=== PATIENT | male | born 1950 | race Caucasian/White ===

== ENCOUNTER 2018-12-20 06:01 | Day surgery (SDC) | payer OTHER ==
[2018-12-20] MEDS ORDERED: Lactated Ringers 1,000 ML IV SCH (06:30)
[2018-12-20] MEDS ORDERED: DIPRIVAN 200 MG/20 ML IV ONE ×2 (07:53→08:13)
[2018-12-20] MEDS ORDERED: Ketamine HCl 50 MG/ML ONE (07:54)
[2018-12-20 09:16] VITALS: BP 130/78; PULSE 58; O2SAT 99
--- NOTE | 2018-12-20 10:09 | OP ---
SURGERY DATE: 12/20/18 SURGERY TIME: 757 PREOPERATIVE DIAGNOSIS: 1. SCREENING EXAM. POSTOPERATIVE DIAGNOSIS: 1. MILD SIGMOID DIVERTICULOSIS, OTHERWISE NORMAL COLON. PROCEDURE: 1. Colonoscopy. SURGEON: Dr. Leon. ANESTHESIA: MAC. Medications given by the Anesthesia Department. BRIEF HISTORY: The patient is a 68 y/o WM patient presenting now for endoscopic evaluation. He was appraised of the risks of the procedure including the risk of perforation, phlebitis, untoward reaction to medication, bleeding, and missed lesions. The patient verbalized his understanding and desired to have the procedure performed. DESCRIPTION OF PROCEDURE: The patient was given the medications by the Anesthesia Department. He had continuous pulse oximetry, ECG monitoring, intermittent BP monitoring, and end tidal CO2 monitoring during the examination. He was placed in the left lateral decubitus position. A digital rectal examination was performed and revealed normal anal sphincter tone, no masses, and surgically absent prostate. The flexible Olympus pediatric colonoscope was used to intubate the rectum. A view of the colon was developed sequentially to the cecum. Upon insertion and withdrawal, including a retroflex view in the rectum, was noted a few scattered sigmoid diverticula, otherwise no other mucosal lesions were encountered. The scope was removed from the patient who tolerated the procedure well and was sent back to OP recovery in good condition.
== END 2018-12-20 09:15 | disposition home or self-care (01) ==
LOC: SDC 06:01
PROVIDERS: ATTEND Family Medicine
DX: Z12.11 Encounter for screening for malignant neoplasm of colon (principal); K57.30 Diverticulosis of large intestine without perforation or abscess without bleeding
CPT/HCPCS: J2704

== ENCOUNTER 2021-06-10 06:20 | Emergency (ER) | payer OTHER ==
[2021-06-10 06:25] VITALS: PULSE 85; O2SAT 100
[2021-06-10] MEDS ORDERED: Zofran 4 MG/2 ML VIAL IV ONE (06:52)
[2021-06-10] MEDS ORDERED: Sodium Chloride 0.9% 1000 ML 1,000 ML IV STA (06:52)
--- NOTE | 2021-06-10 06:52 | ERPHSYRPT ---
- History of Present Illness Time Seen by Provider: 06/10/21 06:30 Exam Limitations: no limitations Patient Subjective Stated Complaint: nausea, dry heaves, feel dehydrated Triage Nursing Assessment: pt c/o nausea, dry heaves, feels dehydrated. Pt had Lt knee replacement on 06/07/21 and from taking the pain pills he continues to be sick to his stomach. Has been unable to eat hardly anything yesterday but crackers. Lungs clear, heart tones reg, abd soft with active bsx4 quad, nontender. Lt knee has dressing in place, c,d,i. Redness noted around lt knee and lt knee is warm to touch. Gave pt ice packs for knee and elevated knee. Physician History: The patient is a 70-year-old male with a past medical history significant for hypertension and who is recently status post left knee arthroplasty as of June 07, 2021 presents with a chief complaint of nausea and dry heaving. Of note, the patient states that he was taking Olney on an empty stomach since he got home from surgery which made him feel nauseous. He has since stopped taking the Olney over the weekend however he continued to feel nauseous and has had a couple episodes of dry heaving. He denies any abdominal pain, fever, chills, diarrhea. In terms of his left knee, he denies any pain out of proportion and the wound appears to be healing well with no purulent drainage or active bleeding. His orthopedic surgeon is Dr. Rios who is due to follow-up with her shortly. The patient states he has been out walking with a walker and flexing and extending the knee. He states he normally gets nauseous with taking pain medications. He was arrives via EMS and had IV access access already established and had received 4 mg of Zofran prior to arrival with little relief. The patient feels that he is getting dehydrated. Associated Symptoms: nausea, vomiting, No abdominal pain, No shortness of breath Allergies/Adverse Reactions: cinnamon Allergy (Severe, Verified 12/20/18 06:50) vomiting Sulfa (Sulfonamide Antibiotics) Adverse Reaction (Intermediate, Verified 06/10/21 06:44) Fatigue Home Medications: Aspirin 81 mg PO DAILY 06/10/21 [History] Benazepril HCl 10 mg PO DAILY 06/10/21 [History] Hx Tetanus, Diphtheria Vaccination/Date Given: Yes Hx Influenza Vaccination/Date Given: Yes Hx Pneumococcal Vaccination/Date Given: No Immunizations Up to Date: Yes Travel Risk - International Travel Have you traveled outside of the country in past 3 weeks: No - Coronavirus Screening Are you exhibiting any of the following symptoms?: Yes Symptoms: Vomiting/Diarrhea, Headaches/Body Aches/Fatigue Close contact with a COVID-19 positive Pt in past 14-21 Days: No - Vaccine Status Have you recieved a Covid-19 vaccination: No - Review of Systems Constitutional: No Fever, No Chills Eyes: No Symptoms Ears, Nose, & Throat: No Symptoms Respiratory: No Symptoms Cardiac: No Symptoms Abdominal/Gastrointestinal: Nausea, Vomiting, Appetite Changes, No Abdominal Pain, No Constipation Genitourinary Symptoms: No Symptoms Musculoskeletal: Other (Left knee pain) Skin: Other (Surgical wound, left knee) Neurological: No Symptoms Immunological/Allergic: No Symptoms All Other Systems: Reviewed and Negative - Past Medical History Pertinent Past Medical History: Yes Neurological History: No Pertinent History ENT History: No Pertinent History Cardiac History: High Cholesterol Respiratory History: No Pertinent History Endocrine Medical History: No Pertinent History Musculoskeletal History: No Pertinent History GI Medical History: No Pertinent History History: No Pertinent History Psycho-Social History: No Pertinent History Male Reproductive Disorders: Prostate Cancer - Past Surgical History Past Surgical History: Yes Neuro Surgical History: No Pertinent History Cardiac: No Pertinent History Respiratory: No Pertinent History Gastrointestinal: No Pertinent History Genitourinary: No Pertinent History Musculoskeletal: Orthopedic Surgery Male Surgical History: Prostate Surgery Other Surgical History: Prostate may 18 2018. lt knee replacement 06/07/21 - Social History Smoking Status: Never smoker Exposure to second hand smoke: No Drug Use: none Patient Lives Alone: No - Nursing Vital Signs Nursing Vital Signs: Initial Vital Signs Temperature 98.3 F 06/10/21 06:21 Pulse Rate 85 06/10/21 06:21 Respiratory Rate 18 06/10/21 06:21 Blood Pressure 155/85 06/10/21 06:21 O2 Sat by Pulse Oximetry 100 06/10/21 06:21 Pain Scale Pain Intensity 8 - Physical Exam General Appearance: no apparent distress, alert Eye Exam: No scleral icterus Ears, Nose, Throat Exam: moist mucous membranes Neck Exam: normal inspection, supple Respiratory Exam: normal breath sounds, lungs clear, airway intact, No respiratory distress, No diminished breath sounds Cardiovascular Exam: regular rate/rhythm, normal heart sounds, normal peripheral pulses, capillary refill <2 sec, other (Left DP 2+), No murmur, No friction rub, No gallop, No edema Gastrointestinal/Abdomen Exam: soft, No tenderness, No distention, No mass, No guarding, No ecchymosis Rectal Exam: deferred Neurologic Exam: alert, oriented x 3, cooperative, normal mood/affect Skin Exam: other (transervse surgical wound with a clean bandage noted over the anterior L knee with some surrounding erythema and slight increased warmth with little tenderness), No dry SpO2 Interpretation: normal SpO2: 100 O2 Delivery: Room Air Ordered Tests: Active Orders 24 hr Category Date Time Status IV Insertion STAT Care 06/10/21 06:52 Active PO Fluid Challenge STAT Care 06/10/21 07:13 Active BMP Stat Lab 06/10/21 07:00 Completed Medication Summary Discontinued Medications Generic Name Dose Route Start Last Admin Trade Name Freq PRN Reason Stop Dose Admin Sodium Chloride 1,000 mls @ 999 mls/hr 06/10/21 06:52 06/10/21 06:56 Sodium Chloride 0.9% 1000 Ml IV 06/10/21 07:52 999 mls/hr .Q1H1M STA Administration Sodium Chloride Confirm 06/10/21 06:54 Sodium Chloride 0.9% 1000 Ml Administered 06/10/21 06:55 Dose 1,000 mls @ ud .ROUTE .STK-MED ONE Ondansetron HCl 4 mg 06/10/21 06:52 06/10/21 06:56 Ondansetron Hcl 4 Mg/2 Ml Vial IV 06/10/21 06:53 4 mg STAT ONE Administration Ondansetron HCl Confirm 06/10/21 06:54 Ondansetron Hcl 4 Mg/2 Ml Vial Administered 06/10/21 06:55 Dose 4 mg .ROUTE .STK-MED ONE Lab/Rad Data: Laboratory Result Diagrams 06/10/21 07:00 Laboratory Results 06/10/21 Range/Units 07:00 Sodium 136 L (137-145) mmol/L Potassium 4.1 (3.5-5.1) mmol/L Chloride 102 (98-107) mmol/L Carbon Dioxide 25 (22-30) mmol/L Anion Gap 12.2 (5-15) MEQ/L BUN 11 (9-20) mg/dL Creatinine 0.92 (0.66-1.25) mg/dL Estimated GFR > 60.0 ML/MIN Glucose 136 H (74-106) mg/dL Calcium 9.3 (8.4-10.2) mg/dL - Progress Progress: improved Progress Note: 06/10/21 07:06 Nontoxic in appearance. The patient presents with nausea and decreased appetite in the context of taking Olney on empty stomach. He is otherwise well- appearing and has no additional complaints. The left knee appears typical postoperative changes and my suspicion for septic arthritis or infected prosthetic knee is low at this time and therefore work-up for such will be deferred. I suspect his nausea and vomiting is likely a medication side effect from the Olney. I will check a BMP to evaluate his electrolytes since he is concerned to being dehydrated and given a liter of IV fluids in addition to more IV Zofran. Once he is feeling better and able to tolerate p.o., he will be discharged home with a prescription for Zofran. 06/10/21 07:26 I updated the patient's with the clinical impression, care plan and plan for discharge when she is feeling better. She states that the patient was not sent home with any antiemetics however he has been taking MiraLAX for stool softeners since he has been constipated postoperatively. She has been given 1 capful daily with really no success and I told her she can titrate this up to 3 capfuls daily if needed and titrate down accordingly. She also stated she has been in contact with the orthopedic surgery clinic and they are willing to change the patient's pain medications if needed. 06/10/21 07:28 Counseled pt/family regarding: lab results, diagnosis, need for follow-up - Departure Departure Disposition: Home Clinical Impression: Nausea & vomiting, Medication side effect Condition: Stable Critical Care Time: No Referrals: JORGE A ESPOSITO [Primary Care Provider] - Follow up/PCP as directed Instructions: Nausea and Vomiting, Adult (DC) Additional Instructions: Please reach out to your orthopedic surgeon to see if your pain medications can be switched. Also regardless of which medication that you were given a you decide to take whether it is Olney or different pain medication, please try to take this after eating a full meal. Also please try to take your Zofran and allowing 20 to 30 minutes to take effect before deciding to take your medication as well to avoid any additional nausea or vomiting. Prescriptions: Ondansetron [Ondansetron Odt ] 4 - 8 mg PO Q6H PRN #30 tablet PRN Reason: Nausea
[2021-06-10] MEDS ORDERED: Sodium Chloride 0.9% 1000 ML 1,000 ML ONE (06:54)
[2021-06-10] MEDS ORDERED: Zofran 4 MG/2 ML VIAL ONE (06:54)
[2021-06-10 07:08] VITALS: BP 144/78
[2021-06-10 07:30] LABS: ANION GAP 12.2 MEQ/L (5-15); BLOOD UREA NITROGEN 11 mg/dL (9-20); CHLORIDE 102 mmol/L (98-107); Calcium 9.3 mg/dL (8.4-10.2); Carbon Dioxide 25 mmol/L (22-30); Creatinine 1 0.92 mg/dL (0.66-1.25); EST GLOMERULAR FILTRATION RATE > 60.0 ML/MIN; Glucose 136 mg/dL (74-106); Potassium 4.1 mmol/L (3.5-5.1); SODIUM 136 mmol/L (137-145)
== END 2021-06-10 08:19 | disposition home or self-care (01) ==
LOC: ED 06:20
DX: R11.2 Nausea with vomiting, unspecified (principal); T40.2X5A Adverse effect of other opioids, initial encounter; Z96.652 Presence of left artificial knee joint; E78.5 Hyperlipidemia, unspecified; Z79.891 Long term (current) use of opiate analgesic
CPT/HCPCS: 36000; 36415; 80048; 96360; 96374; 99284; J2405